=== PATIENT | female | born 1995 | race Caucasian/White ===

== ENCOUNTER 2019-10-12 04:35 | Emergency (ER) | payer OTHER ==
[2019-10-12] MEDS ORDERED: Ondansetron ODT 4 MG TAB ONE (05:08)
[2019-10-12 05:43] LABS: Bacteria/HPF None Seen HPF (None Seen); Bilirubin Negative (Negative); Blood, Urine Trace (Negative); Clarity Clear (Clear); Glucose, Urine (Dipstick) Normal (Negative); Leukocyte Negative Leu/uL (Negative); Nitrite Negative (Negative); Protein, Urine (Dipstick) 20 mg/dL (Neg-Trace); RBC/HPF 0-3 HPF (0-3); Squamous Epithelial 0-3 HPF (0-3); Urobilinogen Normal mg/dL (Less than 2); WBC/HPF 0-3 HPF (0-3)
[2019-10-12 05:49] LABS: Pregnancy Test - Urine (BHCG) Negative (Negative); Pregu Control Background? CLEAR/WHITE (CLR/WHITE); Pregu Control Bar Appear? YES (CONTROL BAR); Specific Gravity 1.028 (1.002-1.036)
[2019-10-12 06:11] LABS: #Basophils 0.1 thou/uL (0.0-0.2); #Eosinphils 0.2 thou/uL (0.0-0.7); #Lymphocytes 2.6 thou/uL (1.20-3.40); #Monocytes 0.8 thou/uL (0.11-0.59); #Neutrophils 8.7 thou/uL (1.40-6.50); %Basophils 0.6 % (0.0-1.0); %Eosinophils 1.4 % (0.0-10.0); %Lymphocytes 20.8 % (21.0-51.0); %Monocytes 6.8 % (0.0-10.0); %Neutrophils 70.3 % (42.0-75.0); Hemoglobin 13.6 g/dL (12.0-16.0); Mean Corpuscular HGB CONC 34.4 g/dL (32.0-36.0); Mean Corpuscular Hemoglobin 29.5 pg (27.0-31.0); Mean Corpuscular Volume 85.9 fL (78.0-98.0); Platelet Count 309 thou/uL (130-400); Red Blood Cell (RBC) Count 4.61 mill/uL (4.20-5.40); White Blood Cell (WBC) Count 12.4 thou/uL (4.8-10.8)
[2019-10-12 06:32] LABS: ALT (SGPT) 13 U/L (8-55); AST (SGOT) 17 U/L (5-34); Albumin 4.4 g/dL (3.5-5.0); Alkaline Phosphatase 63 U/L (40-110); Anion Gap 12 mmol/L (10-20); BUN (Urea Nitrogen) 10 mg/dL (7.0-18.7); Bilirubin, Total 0.3 mg/dL (0.2-1.2); Calc. Creatinine Clearance 0 mL/min (70-130); Calcium 9.1 mg/dL (7.8-10.44); Carbon Dioxide 25 mmol/L (22-29); Chloride 104 mmol/L (98-107); Estimated GFR-MDRD Greater than 90; Globulin 3.2 g/dL (2.4-3.5); Glucose 102 mg/dL (70-105); Lipase 15 U/L (8-78); Potassium 3.9 mmol/L (3.5-5.1); Protein, Total 7.6 g/dL (6.0-8.3); Sodium 137 mmol/L (136-145)
[2019-10-12] MEDS ORDERED: Ketorolac Tromethamine 30 MG/ML VIAL ONE (06:56)
--- NOTE | 2019-10-12 10:26 | ULT ---
PELVIC ULTRASOUND: 10/12/2019 HISTORY: Pain. COMPARISON: None. TECHNIQUE: Multiplanar sanchez-scale sonographic imaging of the pelvis obtained with transabdominal imaging. The ov frank are assessed with color-flow and spectral analysis. FINDINGS: The uterus is slightly retroverted and measures approximately 4.1 x 7.5 x 5.6 cm. The endometrial str ipe is estimated at 7 mm. There is small volume free fluid in the pelvic cul-de-sac. The right ovary measures 3.7 x 3.4 cm. Within the right ovary is an angulated, hypoechoic area, measu ring 2.2 x 1.1 cm, suggesting a collapsed/possibly ruptured cyst. There is normal blood flow within t he right ovary. The left ovary measures 3.5 x 1.9 x 2.8 cm and demonstrates normal blood flow without evidence for mass. IMPRESSION: Small volume free fluid within the pelvis. The ovaries demonstrate normal blood flow. There is a hypo echoic area within the right ovary which may represent a collapsed/ruptured cyst. POS: NITHIN
== END 2019-10-12 08:35 | disposition home or self-care (01) ==
LOC: ERS 04:35
DX: K52.9 Noninfective gastroenteritis and colitis, unspecified (principal); N83.201 Unspecified ovarian cyst, right side; Z79.01 Long term (current) use of anticoagulants
CPT/HCPCS: 36415; 76856; 80053; 81003; 81015; 81025; 83690; 85025; 96361; 96374; J1885; Q0162